=== PATIENT | male | born 1960 ===

== ENCOUNTER 2024-07-03 06:05 | Day surgery (SDC) | payer OTHER ==
[2024-06-27 11:38] VITALS: BP 129/85
[~2024-07-03] VITALS: Ht 188 cm; Wt 95.3 kg
[~2024-07-03 06:05] MED LIST: ACID REDUCER20 M1; ASA81 MG PO; COMBIVENT RESPIM4 GM; GLIMEPIRIDE4 MG; HYDROCHLOROTHIA25 MG PO; LIPITOR20 MG PO; LOTENSIN40 MG PO; LOTREL 5-20 MG1 CAP; METFORMIN HCL1000 MG; TAMS0.4C PO; TIOTROPIUM
[2024-07-03] MEDS ORDERED: BUPIVACAINE LIPOSOME/PF 266 MG/20 ML VIAL IJ ONE (08:49)
[2024-07-03] MEDS ORDERED: BUPIVACAINE HCL/MPF 0.5% 30ML VIAL ONE (08:52)
[2024-07-03] MEDS ORDERED: DIBUCAINE 30 GM TUBE ONE (08:52)
[2024-07-03] MEDS ORDERED: HEMOSTATIC MATRIX 1 KIT KIT TOP ONE (08:53)
[2024-07-03] MEDS ORDERED: METRONIDAZOLE/SODIUM CHLORIDE 500 MG/100 ML PIGGYBACK IV ONE (08:53)
[2024-07-03] MEDS ORDERED: CEFTRIAXONE SODIUM 2,000 MG VIAL ONE (08:53)
[2024-07-03] MEDS ORDERED: POVIDONE-IODINE 118 ML BOTT TOP ONE (08:53)
[2024-07-03] MEDS ORDERED: TAMSULOSIN HCL 0.4 MG CAP PO ONE ×2 (11:00→13:03)
[2024-07-03] MEDS ORDERED: OXYCODONE HCL5 MG PO (11:04)
[2024-07-03] MEDS ORDERED: MORPHINE SULFATE 4 MG/ML VIAL IV ONE (13:15)
== END 2024-07-03 15:30 | disposition home or self-care (01) ==
LOC: CIR.AMB 06:05
PROVIDERS: ATTEND Surgery
DX: K64.2 Third degree hemorrhoids (principal); K64.5 Perianal venous thrombosis; K62.5 Hemorrhage of anus and rectum; K62.89 Other specified diseases of anus and rectum; I10 Essential (primary) hypertension; E78.5 Hyperlipidemia, unspecified; J45.909 Unspecified asthma, uncomplicated; E11.9 Type 2 diabetes mellitus without complications; M19.90 Unspecified osteoarthritis, unspecified site